=== PATIENT | female | born 1965 | race Caucasian/White ===

== ENCOUNTER 2025-09-19 18:15 | Inpatient (IN) | payer MEDICARE, MEDICAID ==
[~2025-09-19] VITALS: Ht 175.3 cm; Wt 79.4 kg
[~2025-09-19 18:15] MED LIST: GABA-1201 PO; TRAZ-252 PO
[2025-09-19 19:02] LABS: PLATELET COUNT (AUTO) 335 K/uL (150-450); RED BLOOD CELL COUNT(AUTO) 4.37 MIL/uL (4.00-5.20); RED CELL DISTRIBUTION WIDTH 14.5 % (11.5-14.5); WHITE BLOOD COUNT (AUTO) 5.8 K/uL (4.5-11.0)
[2025-09-19 19:18] LABS: CALCIUM, TOTAL 8.5 mg/dL (8.8-10.5); CREATININE 0.75 mg/dL (0.60-1.30); GLOMERULAR FILTR. RATE CALC > 60 mL/min (>60); GLUCOSE,RANDOM 120 mg/dL (70-110); SODIUM SERUM 139 mmol/L (136-145); UREA NITROGEN, BLOOD 10 mg/dL (7-18)
[2025-09-19 19:54] LABS: COVID AG,FIA SOURCE NASAL SWAB
[2025-09-19 20:20] LABS: SARS-COV2 (COVID) ANTIGEN,FIA Negative (Negative)
[2025-09-19] MEDS ORDERED: ZOLPIDEM TARTRATE 10 MG TABLET PO PRN (23:15)
[2025-09-20 00:07] VITALS: BP_SYST 113; BP_SYST 13; BP_DIAS 63; PULSE 90; RESP 18; TEMP 98.5; O2SAT 98
[2025-09-20 00:25] VITALS: BP 113/63; PULSE 90; RESP 18; TEMP 98.5; O2SAT 98
[2025-09-20] MEDS ORDERED: INFLUENZA VIRUS VACCINE TVS (6MO+) 2025-26/PF 45 MCG/0.5 ML SYRINGE IM. ONE (02:45)
[2025-09-20 08:15] VITALS: BP 94/59; PULSE 68; RESP 18; TEMP 98; O2SAT 100
[2025-09-20] MEDS ORDERED: ACETAMINOPHEN 325 MG TABLET PO PRN (09:15)
[2025-09-20] MEDS ORDERED: OLANZapine 5 MG RAPDIS TABLET PO PRN (09:15)
[2025-09-20] MEDS ORDERED: MAGNESIUM HYDROXIDE SUSPENSION 30 ML UDCUP PO PRN (09:15)
[2025-09-20] MEDS ORDERED: PROMETHAZINE HCL 25 MG TABLET PO PRN (09:15)
[2025-09-20] MEDS ORDERED: TUBERCULIN, PURIFIED PROTEIN DERIVATIVE 5 TU/0.1 ML SYRINGE ID ONE (09:15)
[2025-09-20] MEDS ORDERED: GuaiFENesin/D-METHORPHAN [SUGAR-FREE] 200-20MG/10 ML SYRUP UDCUP PO PRN (09:15)
[2025-09-20] MEDS ORDERED: MAG HYDROX/ALUMINUM HYD/SIMETH ES 30 ML SUSPENSION UDCUP PO PRN (09:15)
[2025-09-20] MEDS: DIVALPROEX SODIUM 500 MG ER TABLET PO SCH (12:59)
[2025-09-20] MEDS: OLANZapine 5 MG RAPDIS TABLET PO SCH (12:59)
[2025-09-20] MEDS: THIAMINE 100 MG TABLET PO SCH (16:48)
[2025-09-20 20:08] VITALS: BP 101/58; PULSE 87; RESP 18; TEMP 97.9; O2SAT 99
[2025-09-20] MEDS: MELATONIN 5 MG TABLET PO SCH (20:31)
[2025-09-21 08:00] VITALS: BP 102/57; PULSE 86; RESP 18; TEMP 97.9; O2SAT 99
[2025-09-21] MEDS: MULTIVITAMINS WITH MINERALS, THERAPEUTIC TABLET PO SCH (09:02)
[2025-09-21] MEDS: FOLIC ACID 1 MG TABLET PO SCH (09:02)
[2025-09-21] MEDS: NALTREXONE HCL 50 MG TABLET PO SCH (09:02)
[2025-09-21 16:45] VITALS: BP 106/60; PULSE 82; RESP 18; TEMP 98; O2SAT 99
[2025-09-21 17:36] VITALS: BP 115/97; PULSE 80; RESP 18; TEMP 97.3; O2SAT 97
[2025-09-21] MEDS: BUPRENORPHINE HCL/NALOXONE HCL 8-2 MG SUBLINGUAL TABLET SL SCH (17:38)
[2025-09-21] MEDS: GABAPENTIN 400 MG CAPSULE PO SCH (17:39)
[2025-09-21] MEDS: CYANOCOBALAMIN 1,000 MCG/ML VIAL IM ONE (17:40)
[2025-09-21 21:07] VITALS: BP 104/63; PULSE 82; RESP 18; TEMP 98; O2SAT 99
[2025-09-22 08:27] VITALS: BP 98/62; PULSE 87; RESP 18; TEMP 98.2; O2SAT 98
[2025-09-22 09:38] VITALS: BP 115/96; PULSE 82; RESP 18; O2SAT 97
[2025-09-22] MEDS ORDERED: NALT50TA33 PO (16:49)
[2025-09-22] MEDS ORDERED: MELA5TAB40 PO (16:49)
[2025-09-22] MEDS ORDERED: OLAN5TAB94 PO (16:49)
[2025-09-22] MEDS ORDERED: GABA-1201 PO (16:49)
[2025-09-22] MEDS ORDERED: DIVA-153 PO (16:49)
[2025-09-22 18:01] VITALS: BP 110/68; PULSE 82; RESP 18; TEMP 98.2; O2SAT 99
[2025-09-23 08:00] VITALS: BP 114/68; PULSE 88; RESP 18; TEMP 98.1; O2SAT 98
[2025-09-23] MEDS: OLANZapine 5 MG RAPDIS TABLET PO SCH (17:39)
[2025-09-23 18:02] VITALS: BP 108/80; PULSE 87; RESP 17; TEMP 98.4; O2SAT 96
[2025-09-23 20:17] VITALS: BP 108/80; PULSE 87; RESP 18; TEMP 98.4; O2SAT 92
[2025-09-24 08:18] VITALS: BP 98/60; PULSE 67; RESP 16; TEMP 97.3; O2SAT 99
[2025-09-24 16:43] VITALS: BP 102/72; PULSE 85; RESP 18
[2025-09-24 20:39] VITALS: BP 104/62; PULSE 92; RESP 18; TEMP 97.5; O2SAT 98
[2025-09-25 00:19] VITALS: BP 104/62; PULSE 92; RESP 18; TEMP 97.5; O2SAT 98
[2025-09-25 08:20] VITALS: BP 102/69; PULSE 100; RESP 17; TEMP 97.1; O2SAT 98
[2025-09-25 18:13] VITALS: BP 111/89; PULSE 97; RESP 18; TEMP 97.6; O2SAT 97
[2025-09-25 20:15] VITALS: BP 114/63; PULSE 83; RESP 18; TEMP 98.2; O2SAT 97
[2025-09-26 08:39] VITALS: BP 123/97; PULSE 88; RESP 17; TEMP 98.3; O2SAT 98
[2025-09-26 20:16] VITALS: BP 125/83; PULSE 97; RESP 18; TEMP 98; O2SAT 98
[2025-09-27] MEDS: OLANZapine 5 MG RAPDIS TABLET PO SCH (10:28)
[2025-09-27] MEDS: GABAPENTIN 400 MG CAPSULE PO SCH (10:28)
[2025-09-27 11:45] VITALS: BP 115/77; PULSE 80; RESP 16; TEMP 98; O2SAT 99
[2025-09-27] MEDS ORDERED: GABA-1181 PO (14:53)
[2025-09-27] MEDS ORDERED: OLAN5TAB94 PO (14:53)
[2025-09-27] MEDS ORDERED: BUPR1TAB46 SL (14:53)
[2025-09-27] MEDS ORDERED: MELA5TAB40 PO (14:53)
[2025-09-27] MEDS ORDERED: DIVA-153 PO (14:53)
[2025-09-27] MEDS: GABAPENTIN 300 MG CAPSULE PO SCH (16:29)
[2025-09-27 20:31] VITALS: BP 131/79; PULSE 98; RESP 17; TEMP 97.6; O2SAT 98
[2025-09-28 08:44] VITALS: BP 120/77; PULSE 97; RESP 18; TEMP 98.3; O2SAT 98
[2025-09-28 20:18] VITALS: BP 104/70; PULSE 87; RESP 18; TEMP 97.8; O2SAT 100
[2025-09-29 09:05] VITALS: BP 126/71; PULSE 94; RESP 18; TEMP 98.4; O2SAT 97
[2025-09-29] MEDS: OLANZapine 5 MG RAPDIS TABLET PO SCH (16:58)
[2025-09-29] MEDS: GABAPENTIN 300 MG CAPSULE PO SCH (17:00)
[2025-09-29] MEDS: LOPERAMIDE HCL 2 MG CAPSULE PO PRN (18:00)
[2025-09-29] MEDS ORDERED: ONDANSETRON 4 MG TABLET PO PRN (18:15)
[2025-09-29 20:05] VITALS: BP 116/74; PULSE 109; RESP 18; TEMP 97.6; O2SAT 95
[2025-09-30 08:25] VITALS: BP 114/79; PULSE 72; RESP 18; TEMP 98.5; O2SAT 96
== END 2025-09-30 13:30 | disposition home or self-care (01) | DRG 885 ==
LOC: EMS 18:15 → B2X 23:08 → UNDOADMIN 23:08
PROVIDERS: ADMIT Psychiatry & Neurology Psychiatry; ATTEND Psychiatry & Neurology Psychiatry
PROC: GZHZZZZ Group Psychotherapy (ICD-10-PCS; principal; 2025-09-20)
PROC: GZ58ZZZ Individual Psychotherapy, Cognitive-Behavioral (ICD-10-PCS; 2025-09-20)
PROC: GZ56ZZZ Individual Psychotherapy, Supportive (ICD-10-PCS; 2025-09-20)
DX: F25.0 Schizoaffective disorder, bipolar type (principal); R45.851 Suicidal ideations; J44.9 Chronic obstructive pulmonary disease, unspecified; F10.20 Alcohol dependence, uncomplicated; F17.200 Nicotine dependence, unspecified, uncomplicated; Z20.822 Contact with and (suspected) exposure to COVID-19; F41.9 Anxiety disorder, unspecified; Z55.9 Problems related to education and literacy, unspecified; Z59.9 Problem related to housing and economic circumstances, unspecified; Z63.9 Problem related to primary support group, unspecified; Z65.3 Problems related to other legal circumstances; Z91.148 Patient's other noncompliance with medication regimen for other reason
CPT/HCPCS: 80048; 80164; 83036; 85025; 86592; 99285; G0480; J3420